=== PATIENT | female | born 1965 | race Two or more races ===

== ENCOUNTER 2024-09-02 09:26 | Emergency (ER) | payer OTHER ==
[~2024-09-02] VITALS: Ht 180.3 cm; Wt 59.0 kg
[2024-09-02] MEDS ORDERED: KETOROLAC TROMETHAMINE 60 MG VIAL IM STA (09:52)
[2024-09-02 10:36] LABS: HEMATOCRIT 32.7 % (36.0-45.00); HEMOGLOBIN 10.9 g/dL (12.0-15.00); MEAN CELL VOLUME 87.7 fL (80.00-100.00); MEAN CORPUSCULAR HEMOGLOBIN 29.3 pg (27.00-32.0); MEAN CORPUSCULAR HGB CONC 33.4 g/dl (32.0-36.0); PLATELET COUNT 350 K/uL (150-450); RED BLOOD COUNT 3.73 M/uL (4.00-6.00); RED CELL DISTRIBUTION WIDTH 12.7 % (11.5-14.5)
[2024-09-02 10:55] LABS: CALCIUM 9.1 mg/dL (8.5-10.1); CREATININE SERUM 0.63 mg/dL (0.55-1.02); GFR 97.06; POTASSIUM 4.19 mEq/L (3.5-5.1)
== END 2024-09-02 11:36 | disposition home or self-care (01) ==
LOC: ER 09:26
PROVIDERS: General Practice
DX: R07.89 Other chest pain (principal)